=== PATIENT | male | born 1975 | race African-American/Black ===

== ENCOUNTER 2017-02-17 19:49 | Emergency (ER) | payer OTHER ==
[2017-02-18] MEDS ORDERED: FUL-GLO OP ONE (00:08)
[2017-02-18] MEDS ORDERED: NACL 0.9% IR ONE (00:08)
[2017-02-18] MEDS ORDERED: TETRACAINE 0.5% OU ONE (00:10)
--- NOTE | 2017-02-18 00:41 | Emergency Department Report ---
ED Eye Problem HPI - General Chief complaint: Eye Problems Stated complaint: EYE PAIN Time Seen by Provider: 02/18/17 00:04 Source: patient, family Mode of arrival: Ambulatory Limitations: Language Barrier - History of Present Illness Initial comments: Patient comes into the ER today with complaints of right eye pain having accidentally got some fingernail glue in his right eye. Patient states that this happened approximately 7 hours prior to my evaluation. Patient states that he tried to cut out all the glue from his eyelashes. He also states that he washed out his eye several times with water. MD chief complaint: eye injury - Related Data Previous Rx's Medication Instructions Recorded Last Taken Type Polymyxin B Sulf/Trimethoprim 2 drop OP QID 5 Days 02/18/17 Unknown Rx [Polytrim Eye Drops 02181epsie/0.1%] traMADol [Ultram] 50 mg PO Q4HR PRN #18 tablet 02/18/17 Unknown Rx Allergies Allergy/AdvReac Type Severity Reaction Status Date / Time No Known Allergies Allergy Verified 02/17/17 20:46 ED Review of Systems ROS: Stated complaint: EYE PAIN Other details as noted in HPI Constitutional: denies: chills, fever Eyes: eye pain (right eye), vision change (blurry vision in right eye). denies : eye discharge ENT: denies: ear pain, throat pain Respiratory: denies: cough, shortness of breath, wheezing Cardiovascular: denies: chest pain, palpitations Endocrine: no symptoms reported Gastrointestinal: denies: abdominal pain, nausea, diarrhea Genitourinary: denies: urgency, dysuria Musculoskeletal: denies: back pain, joint swelling, arthralgia Skin: denies: rash, lesions Neurological: denies: headache, weakness, paresthesias Psychiatric: denies: anxiety, depression Hematological/Lymphatic: denies: easy bleeding, easy bruising ED Past Medical Hx - Past Medical History Previous Medical History?: Yes Hx Diabetes: Yes Additional medical history: HIGH CHOLESTEROL - Surgical History Past Surgical History?: No - Social History Smoking Status: Current Every Day Smoker Substance Use Type: Alcohol - Medications Home Medications: Home Medications Medication Instructions Recorded Confirmed Last Taken Type Polymyxin B Sulf/Trimethoprim 2 drop OP QID 5 Days 02/18/17 Unknown Rx [Polytrim Eye Drops 99001voafq/0.1%] traMADol [Ultram] 50 mg PO Q4HR PRN #18 tablet 02/18/17 Unknown Rx ED Physical Exam - General Limitations: Language Barrier General appearance: alert, in no apparent distress - Head Head exam: Present: atraumatic, normocephalic - Eye Eye exam: Present: normal appearance, PERRL, EOMI, conjunctival injection, other. Absent: periorbital swelling, periorbital tenderness Pupils: Present: normal accommodation, other (right eyelid with upper eyelashes glued together. Large corneal abrasion noted to right eye over the pupil and iris region) - Expanded Eye Exam Expanded Eyelids: Normal Inspection: Left, Erythema: Right Pupils: Regular, Round: Bilateral, Reactive: Bilateral Sclera/Conjunctival: Normal Inspection: Left, Injection: Right, Foreign Body: Right (right upper eyelashes glued together.) Posterior chamber: Normal Inspection: Bilateral - ENT ENT exam: Present: mucous membranes moist - Neck Neck exam: Present: normal inspection - Respiratory Respiratory exam: Present: normal lung sounds bilaterally. Absent: respiratory distress - Cardiovascular Cardiovascular Exam: Present: regular rate, normal rhythm. Absent: systolic murmur, diastolic murmur, rubs, gallop - GI/Abdominal GI/Abdominal exam: Present: soft, normal bowel sounds - Rectal Rectal exam: Present: deferred - Extremities Exam Extremities exam: Present: normal inspection - Back Exam Back exam: Present: normal inspection - Neurological Exam Neurological exam: Present: alert, oriented X3 - Psychiatric Psychiatric exam: Present: normal affect, normal mood - Skin Skin exam: Present: warm, dry, intact, normal color. Absent: rash ED Course Vital Signs 02/17/17 20:46 Temperature 98.2 F Pulse Rate 89 Respiratory 20 Rate Blood Pressure 106/75 O2 Sat by Pulse 96 Oximetry - Eye Procedure Alcaine Drops Administered: Yes Eye FB Removal: removal w/ cotton swab, other (removed what appears to be potentially debris from glued eyelashes and glue) Eye Irrigated w/ Saline (ccs): 500 (irrigated right eye with 500 mL of normal saline with improvement in symptoms) Progress: Removed foreign body of glue from eyelashes as well as eye. Fluorescein uptake noted to right eye over iris and pupil consistent with corneal abrasion. Irrigated right eye with 500 mL normal saline after tetracaine ophthalmic drops applied. ED Medical Decision Making - Medical Decision Making Removed foreign body of adhesive material from right eye after tetracaine applied. Patient tolerated procedure very well without any complications. Patient state he is feeling much better after treated here in the ER. I will continue patient on some medication for his eye as well as encouraged him to see ophthalmology in the morning. Patient is in agreement with treatment plan patient stable for discharge. Critical care attestation.: If time is entered above; I have spent that time in minutes in the direct care of this critically ill patient, excluding procedure time. ED Disposition Clinical Impression: Foreign body of right eye, Corneal abrasion, right Disposition: DC- TO HOME OR SELFCARE Is pt being admited?: No Does the pt Need Aspirin: No Condition: Good Instructions: Corneal Abrasion (ED), Eye Foreign Body (ED) Prescriptions: Polymyxin B Sulf/Trimethoprim [Polytrim Eye Drops 23526flrjt/0.1%] 2 drop OP QID 5 Days traMADol [Ultram] 50 mg PO Q4HR PRN #18 tablet PRN Reason: Pain Referrals: PRIMARY CARE, [Primary Care Provider] - 3-5 Days MARII HAZEL MD [Staff Physician] - 24 Hours Time of Disposition: 00:49
[2017-02-18 01:16] VITALS: BP 100/69
== END 2017-02-18 01:12 | disposition home or self-care (01) ==
LOC: ED 19:49
DX: T15.01XA Foreign body in cornea, right eye, initial encounter (principal); E11.9 Type 2 diabetes mellitus without complications; E78.00 Pure hypercholesterolemia, unspecified; F17.200 Nicotine dependence, unspecified, uncomplicated; W45.8XXA Other foreign body or object entering through skin, initial encounter; Y93.89 Activity, other specified; Y99.8 Other external cause status; Y92.89 Other specified places as the place of occurrence of the external cause